=== PATIENT | female | born 1980 | race Caucasian/White ===

== ENCOUNTER 2019-01-02 09:58 | Emergency (ER) | payer OTHER, MEDICAID ==
[~2019-01-02] VITALS: Ht 170.2 cm; Wt 86.2 kg
[~2019-01-02 09:58] MED LIST: AMOXICILLIN875 MG PO; BUSPIRONE HCL10 MG PO; CARISOPRODOL 3350 MG PO; CIPRO500 MG PO; COZAAR 25 MG TA25 M1 PO; CYCLOBENZAPRINE; HYDROCODON-ACE1 EAC7 PO; HYDROCODONE-AP1 EAC6 PO; IBUPROFEN 800800 M1 PO; MEDROLDOSEPACK PO; NOHOMEMEDICATIONS; NORCO 5-325 TA1 EACH PO; PENICILLIN VK500 MG PO; PREDNISONE 20 M20 M1 PO; ROBAXIN 750 MG750 M1 PO; ULTRAM 50MG TAB50 MG PO
[2019-01-02 10:06] VITALS: BP 151/109
[2019-01-02] MEDS ORDERED: RITALIN10 MG PO (10:09)
[2019-01-02] MEDS ORDERED: BLOOD PRESSURE (10:10)
[2019-01-02] MEDS ORDERED: EFFEXOR XR37.5 MG PO (10:10)
[2019-01-02] MEDS ORDERED: DICLOFENAC SODI75 MG (10:11)
[2019-01-02] MEDS ORDERED: AUGMENTIN 875-1 EACH PO (10:18)
[2019-01-02] MEDS ORDERED: PREDNISONE 20 M20 MG PO (10:18)
[2019-01-02] MEDS ORDERED: VENTOLIN HFA 1818 GM INH (10:18)
== END 2019-01-02 10:24 | disposition home or self-care (01) ==
LOC: M.ERS 09:58
DX: J01.90 Acute sinusitis, unspecified (principal); J20.9 Acute bronchitis, unspecified; Z98.51 Tubal ligation status; I10 Essential (primary) hypertension; F98.8 Other specified behavioral and emotional disorders with onset usually occurring in childhood and adolescence; Z90.49 Acquired absence of other specified parts of digestive tract; Z79.899 Other long term (current) drug therapy

== ENCOUNTER 2020-08-29 18:16 | Observation (INO) | payer OTHER, MEDICAID ==
[~2020-08-29] VITALS: Ht 170.2 cm; Wt 86.2 kg
[~2020-08-29 18:16] MED LIST changes: +AUGMENTIN 875-1 EACH PO; +BLOOD PRESSURE; +DICLOFENAC SODI75 MG; +EFFEXOR XR37.5 MG PO; +PREDNISONE 20 M20 MG PO; +RITALIN10 MG PO; +VENTOLIN HFA 1818 GM INH
[2020-08-29 18:26] VITALS: BP 139/87
[2020-08-29] MEDS ORDERED: PROPRANOLOL 1010 MG PO (18:29)
[2020-08-29 18:36] LABS: URINE BLOOD 3+ (Negative); URINE CLARITY SL CLOUDY; URINE COLOR YELLOW; URINE GLUCOSE-RANDOM NEGATIVE (Negative); URINE KETONES 1+ (Negative); URINE NITRITE-REFLEX NEGATIVE (Negative); URINE PROTEIN 1+ (Negative)
[2020-08-29 18:38] LABS: ICTOTEST (BILI CONFIRMATORY) Negative (Negative); URINE BILIRUBIN 1+ (Negative); URINE LEUKOCYTES-REFLEX 3+ (Negative)
[2020-08-29 18:41] LABS: MUCUS >6 Heavy strn/LPF (None Seen); SQUAMOUS >10 Many /LPF (0-3)
[2020-08-29 18:42] LABS: URINE WBC-REFLEX >25 Many /HPF (0-5)
[2020-08-29 18:43] LABS: CASTS None Seen /LPF (None Seen); CRYSTALS None Seen /LPF (None Seen)
[2020-08-29 19:05] LABS: ABSOLUTE BASOPHILS 0.1 thou/uL (0.0-0.2); ABSOLUTE EOSINOPHILS 0.5 thou/uL (0.0-0.7); ABSOLUTE LYMPHOCYTES 3.2 thou/uL (0.8-5.3); ABSOLUTE MONOCYTES 1.7 thou/uL (0.0-1.2); ABSOLUTE NEUTROPHILS 14.4 thou/uL (1.6-8.1); BASOPHILS 0.5 %; EOSINOPHILS 2.4 %; HEMATOCRIT 44.2 % (37.0-47.0); HEMOGLOBIN 14.4 gm/dL (12.0-15.0); LYMPHOCYTES 16.2 %; MCH 27.5 pg (26.0-34.0); MCHC 32.5 g/dL (28.0-37.0); MCV 84.5 fL (80.0-100.0); MONOCYTES 8.4 %; MPV 8.9 fl. (7.2-11.1); NUCLEATED RBCS 0 /100WBC; PLATELET COUNT* 437 thou/uL (150-400); POLYS 72.5 %; RBC 5.23 mil/uL (4.20-5.00); RDW-CV 13.5 % (10.5-14.5); WBC 19.9 thou/uL (4.0-11.0)
[2020-08-29 19:11] LABS: CALCIUM 8.6 mg/dL (8.5-10.1); CREATININE 0.8 mg/dL (0.6-1.3); POTASSIUM 3.7 mmol/L (3.5-5.1)
[2020-08-29 19:15] LABS: APTT 26.7 Seconds (25.0-31.3); PROTIME 10.3 Seconds (9.20-11.50)
[2020-08-29 19:16] LABS: ALBUMIN 3.6 g/dL (3.4-5.0); TOTAL BILIRUBIN 0.6 mg/dL (<0.1-1.0); TOTAL PROTEIN 8.3 g/dL (6.4-8.2)
[2020-08-29 22:37] VITALS: BP 132/84
[2020-08-29 23:00] VITALS: BP 164/77
[2020-08-30 03:57] VITALS: BP 146/87
[2020-08-30 08:00] VITALS: BP 124/84
[2020-08-30 08:52] LABS: CALCIUM 8.3 mg/dL (8.5-10.1); CREATININE 0.8 mg/dL (0.6-1.3); MAGNESIUM 2.5 mg/dL (1.8-2.4); POTASSIUM 3.5 mmol/L (3.5-5.1)
[2020-08-30 16:19] VITALS: BP 124/84
[2020-08-30 16:23] LABS: AMP/METHAMP POSITIVE (Negative); BARBITURATES Negative (Negative); BENZODIAZEPINES Negative (Negative); COCAINE Negative (Negative); METHADONE Negative (Negative); OPIATES POSITIVE (Negative); PCP Negative (Negative); THC POSITIVE (Negative)
[2020-08-30 21:30] VITALS: BP 132/81
[2020-08-31 08:00] VITALS: BP 112/78
[2020-08-31 12:16] VITALS: BP 112/78
--- NOTE | 2020-08-31 17:31 | EKG ---
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: [place] : 1980 Requested By: Kisha Mason Order Number: [id number] MD: Raúl Bryan Measurements Intervals [place] Rate: 109 P: 86 [place]: 126 QRS: 67 QRSD: 78 T: QT: 357 QTc: 481 Interpretive Statements Sinus tachycardia Probable left atrial enlargement Baseline wander in lead(s) I,aVR Compared to ECG 03/14/2017 18:26:13 Low QRS voltage now present Sinus rhythm no longer present Electronically Signed On 08-31-2020 17:31:14 CDT by Raúl Bryan [email or web address] <ELECTRONICALLY SIGNED> By: Raúl Bryan MD, FACC 08/31/20 1731 22 22 Raúl Bryan MD, FAC /EPI
[2020-08-31 17:55] VITALS: BP 112/78
== END 2020-08-31 14:00 | disposition home or self-care (01) ==
LOC: M.ERS 18:16 → M.ORTHSURG 20:29 → M.TBA-ER 20:29 → M.ORTHSURG 22:40
PROVIDERS: Nurse Practitioner Family; ADMIT Internal Medicine; ATTEND Internal Medicine
DX: K56.609 Unspecified intestinal obstruction, unspecified as to partial versus complete obstruction (principal); R11.2 Nausea with vomiting, unspecified; N39.0 Urinary tract infection, site not specified; N30.80 Other cystitis without hematuria; I10 Essential (primary) hypertension; F41.9 Anxiety disorder, unspecified; F90.9 Attention-deficit hyperactivity disorder, unspecified type; Z90.710 Acquired absence of both cervix and uterus; Z79.899 Other long term (current) drug therapy; Z20.822 Contact with and (suspected) exposure to COVID-19

== ENCOUNTER 2020-09-22 21:12 | Emergency (ER) | payer OTHER, MEDICAID ==
[~2020-09-22] VITALS: Ht 170.2 cm; Wt 88.5 kg
[~2020-09-22 21:12] MED LIST changes: +PROPRANOLOL 1010 MG PO
[2020-09-22 21:26] VITALS: BP 133/89
[2020-09-22] MEDS ORDERED: NORCO5 PO (21:39)
[2020-09-22] MEDS ORDERED: PENICILLIN V P500 MG PO (21:39)
[2020-09-22] MEDS ORDERED: ZOFRAN ODT4 MG PO (21:48)
== END 2020-09-22 21:52 | disposition home or self-care (01) ==
LOC: M.ERS 21:12
DX: K02.9 Dental caries, unspecified (principal); I10 Essential (primary) hypertension; Z90.710 Acquired absence of both cervix and uterus; Z90.49 Acquired absence of other specified parts of digestive tract; Z98.51 Tubal ligation status

== ENCOUNTER 2020-11-23 14:23 | Emergency (ER) | payer OTHER, MEDICAID ==
[~2020-11-23] VITALS: Ht 170.2 cm; Wt 89.8 kg
[~2020-11-23 14:23] MED LIST changes: +NORCO5 PO; +PENICILLIN V P500 MG PO; +ZOFRAN ODT4 MG PO
[2020-11-23 14:28] VITALS: BP 140/90
[2020-11-23] MEDS ORDERED: ATOMOXETINE HCL10 MG PO (14:31)
[2020-11-23] MEDS ORDERED: NAPROSYN500 MG PO (16:53)
== END 2020-11-23 17:02 | disposition home or self-care (01) ==
LOC: M.ERS 14:23
DX: M77.8 Other enthesopathies, not elsewhere classified (principal); I10 Essential (primary) hypertension; Z98.51 Tubal ligation status; Z90.49 Acquired absence of other specified parts of digestive tract; Z90.710 Acquired absence of both cervix and uterus